=== PATIENT | female | born 1990 | race Caucasian/White ===

== ENCOUNTER 2020-10-10 18:51 | Outpatient (CLI) | payer BC | END 2020-10-10 18:52 | disposition home or self-care (01) | LOC: COV 18:51 | PROVIDERS: ATTEND Family Medicine | DX: R53.83 Other fatigue (principal); R68.83 Chills (without fever); Z20.822 Contact with and (suspected) exposure to COVID-19 ==

== ENCOUNTER 2022-02-05 08:00 | Outpatient (CLI) | payer BC | END 2022-02-06 16:27 | disposition home or self-care (01) | LOC: LAB.N 08:00 | PROVIDERS: ATTEND Family Medicine | DX: J06.9 Acute upper respiratory infection, unspecified (principal); Z20.822 Contact with and (suspected) exposure to COVID-19 ==

== ENCOUNTER 2022-07-03 07:58 | Emergency (ER) | payer BC ==
[2022-07-03] MEDS ORDERED: ONDANSETRON 4 MG/2 ML VIAL IVP STA (08:15)
--- NOTE | 2022-07-03 08:16 | ED Physician Documentation ---
PD HPI CHEST PAIN - Stated complaint Stated Complaint: CHEST PRESSURE/NAUSEA - Chief complaint Chief Complaint: Cardiac - History obtained from History obtained from: Patient - Additional information Additional information: Otherwise healthy 31-year-old woman has had ongoing left hand numbness since January. She has had a CT of her head and an MRI of her neck without pertinent positive findings. She is also had B12 testing. Is scheduled to see neurology next week. She has had on and off tingling in the right hand but today woke up with right hand tingling as well and then developed chest discomfort that is migratory. No history of heart problems. No pedal edema or calf pain. No family history of coronary disease. Review of Systems Ten Systems: 10 systems reviewed and negative Constitutional: denies: Fever, Chills Cardiac: denies: Palpitations Respiratory: denies: Dyspnea, Cough PD PAST MEDICAL HISTORY - Present Medications Home Medications: Ambulatory Orders Medication Instructions Recorded Confirmed No Known Home Medications 07/03/22 07/03/22 - Allergies Allergies/Adverse Reactions: Allergies Allergy/AdvReac Type Severity Reaction Status Date / Time No Known Drug Allergies Allergy Verified 07/03/22 08:09 PD ED PE NORMAL - Vitals Vital signs reviewed: Yes - General General: Alert and oriented X 3, No acute distress - HEENT HEENT: PERRL, EOMI - Neck Neck: Supple, no meningeal sign, No bony TTP - Cardiac Cardiac: RRR, No murmur, Other (Equal and normal radial pulses bilaterally) - Respiratory Respiratory: No respiratory distress, Clear bilaterally - Abdomen Abdomen: Non tender - Extremities Extremities: No edema, No calf tenderness / cord - Neuro Neuro: Alert and oriented X 3, Normal speech Results - Vitals Vitals: Vital Signs - 24 hr 07/03/22 07/03/22 07/03/22 08:00 08:39 09:00 Temperature 37.2 C Heart Rate 110 H 82 84 Respiratory 14 13 15 Rate Blood Pressure 127/89 H 105/77 95/67 O2 Saturation 100 100 100 Oxygen O2 Source Room air - EKG (time done) 0800 Rate: Rate (enter#) (103) Rhythm: Sinus tachycardia, LAE [place]: Normal Intervals: Normal [place] QRS: Normal Ischemia: Non specific changes. No: ST elevation c/w ischemia, ST depression - Labs Labs: Laboratory Tests 07/03/22 07/03/22 07/03/22 08:05 08:05 08:05 WBC 5.9 RBC 4.55 Hgb 13.7 Hct 39.9 MCV 87.7 MCH 30.1 MCHC 34.3 RDW 13.0 Plt Count 199 MPV 10.1 Neut # (Auto) 3.0 Lymph # (Auto) 2.3 Angelina # (Auto) 0.4 Eos # (Auto) 0.2 Baso # (Auto) 0.0 Absolute Nucleated RBC 0.00 Nucleated RBC % 0.0 D-Dimer Sodium 139 Potassium 3.3 L Chloride 103 Carbon Dioxide 26 Anion Gap 10.0 BUN 7 Creatinine 0.7 Estimated GFR (MDRD) 98 Glucose 112 H Calcium 9.4 Total Bilirubin 0.4 AST 19 ALT 13 Alkaline Phosphatase 57 Troponin I High Sens 2.3 Total Protein 7.5 Albumin 4.3 Globulin 3.2 Albumin/Globulin Ratio 1.3 Lipase 31 07/03/22 08:21 WBC RBC Hgb Hct MCV MCH MCHC RDW Plt Count MPV Neut # (Auto) Lymph # (Auto) Angelina # (Auto) Eos # (Auto) Baso # (Auto) Absolute Nucleated RBC Nucleated RBC % D-Dimer < 200.0 L Sodium Potassium Chloride Carbon Dioxide Anion Gap BUN Creatinine Estimated GFR (MDRD) Glucose Calcium Total Bilirubin AST ALT Alkaline Phosphatase Troponin I High Sens Total Protein Albumin Globulin Albumin/Globulin Ratio Lipase - Rads (name of study) Single view chest x-ray is unremarkable Radiology: EMP read contemporaneously PD MEDICAL DECISION MAKING - ED course ED course: 31-year-old woman with nonspecific chest pain that does not sound typical starting after she noted right hand numbness today. No evidence of ACS on work- up. PE is considered, but D-dimer negative. The combination of negative D- dimer, atypical symptoms, and normal chest x-ray would suggest against dissection as would equal bilateral radial pulses. Departure - Departure Disposition: 01 Home, Self Care Clinical Impression: Chest pain Qualifiers: Chest pain type: chest pain on breathing Qualified Code(s): R07.1 - Chest pain on breathing Condition: Good Record reviewed to determine appropriate education?: Yes Instructions: ED Chest Pain NonCardiac Comments: The only abnormal test today was very mildly low potassium level, that can cause tingling sensations, but doubt it would explain the tingling you have had in your hand for months. Neurology appointment next week as scheduled is appropriate. Testing for serious etiologies of chest pain including screening for blood clots and acute coronary syndrome and chest x-ray were all normal/negative. Call your doctor to arrange a follow-up appointment, make the next available appointment. In the interim, return anytime if worse or if new symptoms develop. Discharge Date/Time: 07/03/22 09:29
[2022-07-03 08:30] LABS: BASOPHILS % (AUTO) 0.3 %; EOSINOPHILS # (AUTO) 0.2 10^3/uL (0.0-0.7); EOSINOPHILS % (AUTO) 2.6 %; HCT - HEMATOCRIT 39.9 % (37.0-47.0); HGB - HEMOGLOBIN 13.7 g/dL (12.0-16.0); LYMPHOCYTES # (AUTO) 2.3 10^3/uL (1.5-3.5); LYMPHOCYTES % (AUTO) 38.9 %; MEAN CORPUSCULAR HEMOGLOBIN 30.1 pg (27.0-31.0); MEAN CORPUSCULAR HGB CONC 34.3 g/dL (32.0-36.0); MEAN CORPUSCULAR VOLUME 87.7 fL (81.0-99.0); MEAN PLATELET VOLUME 10.1 fL (7.9-10.8); MONOCYTES # (AUTO) 0.4 10^3/uL (0.0-1.0); MONOCYTES % (AUTO) 6.5 %; NEUTROPHILS % (AUTO) 51.5 %; PLT - PLATELET COUNT 199 10^3/uL (130-450); RED BLOOD COUNT 4.55 10^6/uL (4.20-5.40); WHITE BLOOD COUNT 5.9 x10^3/uL (4.8-10.8)
--- NOTE | 2022-07-03 08:32 | XRAY Report ---
PROCEDURE: Chest 1 View X-Ray INDICATIONS: Chest Pain TECHNIQUE: One view of the chest was acquired. COMPARISON: None FINDINGS: Surgical changes and devices: None. Lungs and pleura: No pleural effusions or pneumothorax. Lungs are clear. Mediastinum: Mediastinal contours appear normal. Heart size is normal. Bones and chest wall: No suspicious bony lesions. Overlying soft tissues appear unremarkable. IMPRESSION: No acute cardiopulmonary pathology. Reviewed by: Cal Rogers MD on 07/03/2022 8:31 AM PDT Approved by: Cal Rogers MD on 07/03/2022 8:31 AM PDT Station ID: [id number]
[2022-07-03 08:38] LABS: ALBUMIN 4.3 g/dL (3.2-5.5); ALBUMIN/GLOBULIN RATIO 1.3 (1.0-2.2); BILIRUBIN,TOTAL 0.4 mg/dL (0.2-1.0); CALCIUM 9.4 mg/dL (8.5-10.3); CREATININE 0.7 mg/dL (0.4-1.0); POTASSIUM 3.3 mmol/L (3.5-5.0); TOTAL PROTEIN 7.5 g/dL (6.7-8.2)
[2022-07-03] MEDS ORDERED: POTASSIUM CHLORIDE 20 MEQ TABLET PO STA (09:09)
[2022-07-03 09:23] VITALS: BP 95/67
== END 2022-07-03 09:29 | disposition home or self-care (01) ==
LOC: ED 07:58
DX: R07.1 Chest pain on breathing (principal)
CPT/HCPCS: 36415; 71045; 80053; 83690; 84484; 85025; 85379; 93005; 96374; 99284; A9270

== ENCOUNTER 2022-10-20 05:29 | Emergency (ER) | payer BC ==
[2022-10-20] MEDS ORDERED: KETOROLAC 30 MG/ML VIAL IVP STA (05:51)
[2022-10-20] MEDS ORDERED: SODIUM CHLORIDE 0.9% 1,000 ML IV STA (05:51)
[2022-10-20 05:55] LABS: BASOPHILS % (AUTO) 0.3 %; EOSINOPHILS # (AUTO) 0.1 10^3/uL (0.0-0.7); EOSINOPHILS % (AUTO) 0.9 %; HCT - HEMATOCRIT 39.6 % (37.0-47.0); HGB - HEMOGLOBIN 13.2 g/dL (12.0-16.0); LYMPHOCYTES # (AUTO) 2.6 10^3/uL (1.5-3.5); LYMPHOCYTES % (AUTO) 33.6 %; MEAN CORPUSCULAR HGB CONC 33.3 g/dL (32.0-36.0); MEAN PLATELET VOLUME 9.8 fL (7.9-10.8); MONOCYTES # (AUTO) 0.6 10^3/uL (0.0-1.0); MONOCYTES % (AUTO) 8.2 %; NEUTROPHILS # (AUTO) 4.3 10^3/uL (1.5-6.6); NEUTROPHILS % (AUTO) 56.7 %; PLT - PLATELET COUNT 198 10^3/uL (130-450); RED BLOOD COUNT 4.55 10^6/uL (4.20-5.40); RED CELL DISTRIBUTION WIDTH 12.3 % (12.0-15.0); WHITE BLOOD COUNT 7.7 x10^3/uL (4.8-10.8)
[2022-10-20 06:08] LABS: ALBUMIN 4.1 g/dL (3.2-5.5); ALBUMIN/GLOBULIN RATIO 1.3 (1.0-2.2); BILIRUBIN,TOTAL 0.7 mg/dL (0.2-1.0); CALCIUM 8.6 mg/dL (8.5-10.3); CREATININE 0.8 mg/dL (0.4-1.0); POTASSIUM 3.5 mmol/L (3.5-5.0); TOTAL PROTEIN 7.3 g/dL (6.7-8.2)
--- NOTE | 2022-10-20 06:10 | ED Physician Documentation ---
PD HPI CHEST PAIN - Stated complaint Stated Complaint: CHEST/NECK/SHOULDER PX - Chief complaint Chief Complaint: Cardiac - History obtained from History obtained from: Patient - Additional information Additional information: Patient is a 31-year-old female with no significant past medical history presenting for evaluation of left-sided chest pain that is been present since Saturday morning and woke her up from her sleep. She reports it feels sharp. It is worse with taking a deep breath and movements. Is been constant. It is not getting better which prompted her to come to the emergency department for evaluation. She did take ibuprofen without any improvement. She denies feeling short of breath. She denies leg swelling, history of PE or DVT, concerns for , recent surgery or immobilization.She denies any recent injury or trauma, recent illness. No abdominal pain, nausea or vomiting.She denies tobacco, alcohol or illicit substance use. Review of Systems Constitutional: denies: Fever Nose: denies: Congestion Cardiac: reports: Chest pain / pressure Respiratory: denies: Dyspnea GI: denies: Abdominal Pain Neurologic: denies: Headache PD PAST MEDICAL HISTORY - Past Medical History Past Medical History: Yes Cardiovascular: None Respiratory: None Neuro: Other Endocrine/Autoimmune: None GI: None LETTERER: None : None HEENT: None Psych: None Musculoskeletal: None Derm: None Other Past Medical History: L arm/hand tingling since January - Past Surgical History Past Surgical History: No - Present Medications Home Medications: Ambulatory Orders Medication Instructions Recorded Confirmed No Known Home Medications 07/03/22 10/20/22 - Allergies Allergies/Adverse Reactions: Allergies Allergy/AdvReac Type Severity Reaction Status Date / Time No Known Drug Allergies Allergy Verified 10/20/22 05:49 - Social History Does the pt smoke?: No Smoking Status: Never smoker Does the pt drink ETOH?: No Does the pt have substance abuse?: No - Immunizations Immunizations are current?: Yes - POLST Patient has POLST: No PD ED PE NORMAL - General General: Alert and oriented X 3, No acute distress, Well developed/nourished - HEENT HEENT: Atraumatic - Neck Neck: Supple, no meningeal sign - Cardiac Cardiac: RRR, Strong equal pulses, Other (No chest wall crepitus,) - Respiratory Respiratory: No respiratory distress, Clear bilaterally - Abdomen Abdomen: Soft, Non tender, Non distended - Derm Derm: Warm and dry - Extremities Extremities: No calf tenderness / cord Results - Vitals Vitals: Vital Signs - 24 hr 10/20/22 10/20/22 10/20/22 05:35 05:46 06:04 Temperature 37.5 C Heart Rate 97 106 H Respiratory 16 25 H Rate Blood Pressure 109/72 122/76 Blood Pressure 109/72 [Left] O2 Saturation 99 100 Oxygen O2 Source Room air - EKG (time done) 0544 Rate: Rate (enter#) (105) Rhythm: Sinus tachycardia Intervals: No: Prolonged QT Ischemia: No: ST elevation c/w ischemia - Labs Labs: Laboratory Tests 10/20/22 10/20/22 10/20/22 05:40 05:40 05:40 WBC 7.7 RBC 4.55 Hgb 13.2 Hct 39.6 MCV 87.0 MCH 29.0 MCHC 33.3 RDW 12.3 Plt Count 198 MPV 9.8 Neut # (Auto) 4.3 Lymph # (Auto) 2.6 Borden # (Auto) 0.6 Eos # (Auto) 0.1 Baso # (Auto) 0.0 Absolute Nucleated RBC 0.00 Nucleated RBC % 0.0 D-Dimer Sodium 135 Potassium 3.5 Chloride 101 Carbon Dioxide 25 Anion Gap 9.0 BUN 10 Creatinine 0.8 Estimated GFR (MDRD) 84 L Glucose 107 H Calcium 8.6 Total Bilirubin 0.7 AST 17 ALT 14 Alkaline Phosphatase 59 Troponin I High Sens < 2.3 L Total Protein 7.3 Albumin 4.1 Globulin 3.2 Albumin/Globulin Ratio 1.3 Lipase 31 Serum HCG, Qual 10/20/22 10/20/22 06:00 06:18 WBC RBC Hgb Hct MCV MCH MCHC RDW Plt Count MPV Neut # (Auto) Lymph # (Auto) Borden # (Auto) Eos # (Auto) Baso # (Auto) Absolute Nucleated RBC Nucleated RBC % D-Dimer 331.4 H Sodium Potassium Chloride Carbon Dioxide Anion Gap BUN Creatinine Estimated GFR (MDRD) Glucose Calcium Total Bilirubin AST ALT Alkaline Phosphatase Troponin I High Sens Total Protein Albumin Globulin Albumin/Globulin Ratio Lipase Serum HCG, Qual NEGATIVE PD Medical Decision Making - ED course Complexity details: reviewed results, re-evaluated patient, d/w patient, d/w family ED course: Patient presenting for evaluation of left-sided chest pain that appears to be pleuritic in nature. Her EKG demonstrates sinus tachycardia. She is afebrile and does not have URI symptoms.Labs were obtained which I reviewed. Her CBC and chemistries are normal. Her D-dimer is elevated. Her high-sensitivity troponin is negative and based on this as well as lack of risk factors I feel ACS is unlikely. Due to the elevated D-dimer I do feel a CT angio to evaluate for pulmonary embolism is necessary and have ordered this. I did review her chest x-ray and see no signs of pneumonia, pneumothorax or enlarged heart.Patient will be signed out to oncoming provider pending results of CT angio to evaluate for pulmonary embolism. She is receiving IV fluids and has received IV Toradol for her pain. Patient declined need for narcotic medication at this time. Departure - Departure Clinical Impression: Chest pain
[2022-10-20] MEDS ORDERED: iohexoL-300 100 ML VIAL ONE (06:37)
[2022-10-20 06:59] LABS: HCG,QUALITATIVE BLOOD NEGATIVE
[2022-10-20] MEDS ORDERED: iohexoL-300 100 ML VIAL IVP ONE (07:14)
--- NOTE | 2022-10-20 07:48 | CT Report ---
PROCEDURE: ANGIO CHEST W/WO INDICATIONS: CP/SOA/elevated ddimer CONTRAST: 100ml omni 300 TECHNIQUE: After the administration of intravenous contrast, 2 mm axial images were acquired from the pulmonary apices to the posterior costophrenic angles during the arterial phase. In addition, 1 mm lung kernel and 5 mm soft tissue kernel reconstructions were performed. 3-dimensional coronal oblique maximum int ensity projection (MIP) reformats, 8 mm axial MIP, and 5 mm coronal and sagittal MPR reformats were t hen performed through the thorax. For radiation dose reduction, the following was used: automated exp osure control, adjustment of mA and/or kV according to patient size. COMPARISON: None. FINDINGS: Image quality: Excellent. Pulmonary arteries: Pulmonary arteries are normal in size. No evidence for acute right-sided heart s train. There is acute pulmonary emboli involving several branches of the left lower lobe pulmonary ar alicia extending from the proximal segmental level distally. . Lungs and pleura: Lungs are clear. No pleural effusions or pneumothorax. Central and peripheral airways are patent. Mediastinum: Heart size is normal, without pericardial effusion. No mediastinal or hilar adenopathy. Thoracic aorta is normal in caliber and enhancement. Esophagus is normal in caliber. No hiatal hernia. Bones and chest wall: No suspicious bony lesions. Ribs and thoracic spine appear intact throughout. Thyroid gland appears unremarkable. No axillary or supraclavicular adenopathy. Abdomen: Visualized upper abdominal solid organs appear normal in the early arterial phase of enhanc ement. IMPRESSION: Acute pulmonary emboli involving the left lower lobe pulmonary arteries extending from the level of t he proximal segmental pulmonary artery distally. No evidence for pulmonary infarction. No acute airsp shadia disease identified. No evidence for acute right-sided heart strain. Findings discussed with Dr. Mojica at 0746hrs. Reviewed by: Derek Fagan MD on 10/20/2022 7:47 AM [facility] Approved by: Derek Fagan MD on 10/20/2022 7:47 AM PST Station ID: [id number]
--- NOTE | 2022-10-20 07:49 | XRAY Report ---
PROCEDURE: Chest 1 View X-Ray INDICATIONS: CP TECHNIQUE: One view of the chest was acquired. COMPARISON: None. FINDINGS: Surgical changes and devices: None. Lungs and pleura: No pleural effusions or pneumothorax. Lungs are clear. Mediastinum: Mediastinal contours appear normal. Heart size is normal. Bones and chest wall: No suspicious bony lesions. Overlying soft tissues appear unremarkable. IMPRESSION: Low lung volumes. No acute cardiopulmonary modalities. No focal consolidation. No significant discrepancy with initial interpretation by overnight radiologist. Reviewed by: Derek Fagan MD on 10/20/2022 7:47 AM [facility] Approved by: Derek Fagan MD on 10/20/2022 7:47 AM [facility] Station ID: [id number]
[2022-10-20] MEDS ORDERED: APIXABAN 5 MG TABLET PO STA (08:28)
[2022-10-20] MEDS ORDERED: ACETAMINOPHEN 325 MG TABLET PO STA (08:31)
--- NOTE | 2022-10-20 08:49 | ED Physician Documentation ---
ED Addendum - Addendum Addendum: 10/20/22 08:44 Received care of the patient with verbal handoff at change of shift. The patient was pending the results of the CT scan. The CT scan report did come back and the radiologist called as well to inform of a segmental embolus in the left interlobar vessel extending down to the lower lobe segment. No other acute findings. I talked with the patient and her significant other in the room. We discussed the results and the implications being the need for blood thinner medication (anticoagulant) and the alternative choices of Coumadin versus DOAC's. The patient does not have any history of blood clots nor any known family history of early blood clots. She does not have any ulcers. No history of recent surgery or tumors. She is a non-smoker. She had been on oral and contraceptives in the past but not currently. She and her significant other had COVID in April and then received a booster vaccine approximately 2 months later so likely June. She had not had any recent illness. No recent travel or injuries. No obvious cause for the PE. We can add on the common thrombophilia type blood tests since there is not an obvious precipitant. These may help guide subsequent treatment. We did discuss use of the anticoagulants and things to watch out for and be careful of. She can use Tylenol for pain and add oxycodone if needed. They asked about NSAIDs and I said an occasional dose could be considered usually okay but not to use any regularly. [facility] [place] at their direction. Disposition: The patient discharged home in stable condition. Her heart rate is mildly tachycardic but otherwise good vitals. Diagnoses: 1. Pleuritic left-sided chest pain 2. Acute pulmonary embolus
[2022-10-20 08:50] VITALS: BP 103/72
== END 2022-10-20 09:19 | disposition home or self-care (01) ==
LOC: ED 05:29
DX: R07.89 Other chest pain (principal); I26.99 Other pulmonary embolism without acute cor pulmonale
CPT/HCPCS: 36415; 71045; 71275; 80053; 81241; 83690; 84484; 84703; 85025; 85300; 85303; 85306; 85379; 85598; 85613; 85651; 85732; 86147; 93005; 96374; 99283; 99284; A9270; Q9967

== ENCOUNTER 2022-10-21 10:57 | Emergency (ER) | payer BC ==
[2022-10-21] MEDS ORDERED: clonazePAM 0.5 MG TABLET PO STA (11:25)
[2022-10-21] MEDS ORDERED: ONDANSETRON ODT 4 MG TABLET TL STA (11:25)
--- NOTE | 2022-10-21 11:29 | ED Physician Documentation ---
History of Present Illness - Stated complaint Stated Complaint: NAUSEOUS - Chief complaint Chief Complaint: General - History obtained from History obtained from: Patient - Additonal information Additional information: This is a very nice 31-year-old female who presents with nausea as well as difficulty sleeping. She was diagnosed with a pulmonary embolus yesterday morning, and was started on Eliquis which she has been taking. She states that she has had ongoing left sided chest pain that is unchanged from prior, Nonexertional, nonradiatingand woke up this morning feeling nauseous but no vomiting. She denies any abdominal pain, no diarrhea or constipation, no urinary symptoms. She has no shortness of breath but continues to have a constant left-sided chest pain that she was seen for yesterday morning. She has not been able to sleep due to the discomfort and also some degree of anxiety. She is taking Tylenol primarily for pain though took a half of an oxycodone on 2 occasions that did help her sleep but then she would wake up still feeling uncomfortable. No history of pulmonary embolus or DVT, no risk factors for such, patient is undergoing hypercoagulable work-up. Review of Systems Constitutional: reports: Reviewed and negative, Other (All other symptoms reviewed and are negative except as noted per HPI) PD PAST MEDICAL HISTORY - Past Medical History Past Medical History: Yes Cardiovascular: Pulmonary embolism Respiratory: None Neuro: Other Endocrine/Autoimmune: None GI: None MANAGER NEW PRODUCT: None : None HEENT: None Psych: None Musculoskeletal: None Derm: None - Past Surgical History Past Surgical History: No - Present Medications Home Medications: Ambulatory Orders Medication Instructions Recorded Confirmed Apixaban [Eliquis] 5 mg PO BID 30 Days #60 tablet 10/20/22 10/21/22 oxyCODONE [Roxicodone] 5 mg PO Q6H PRN #20 tablet 10/20/22 10/21/22 Ondansetron Odt [Zofran] 4 mg TL Q6H PRN #20 tablet 10/21/22 clonazePAM [Clonazepam] 0.5 mg PO Q8HR PRN #6 tab 10/21/22 - Allergies Allergies/Adverse Reactions: Allergies Allergy/AdvReac Type Severity Reaction Status Date / Time No Known Drug Allergies Allergy Verified 10/21/22 11:12 - Social History Does the pt smoke?: No Smoking Status: Never smoker Does the pt drink ETOH?: No Does the pt have substance abuse?: No - Immunizations Immunizations are current?: Yes - POLST Patient has POLST: No PD ED PE NORMAL - Vitals Vital signs reviewed: Yes - General General: Alert and oriented X 3, No acute distress, Well developed/nourished, Other (Tearful at time) - HEENT HEENT: Atraumatic, Moist mucous membranes - Cardiac Cardiac: No murmur, No gallop, Strong equal pulses, Other (Tachycardic) - Respiratory Respiratory: No respiratory distress, Clear bilaterally - Abdomen Abdomen: Normal bowel sounds, Soft, Non tender, Non distended - Derm Derm: Normal color, Warm and dry, No rash - Neuro Neuro: Alert and oriented X 3 Eye Opening: Spontaneous Motor: Obeys Commands Verbal: Oriented GCS Score: 15 - Psych Psych: Normal mood, Normal affect Results - Vitals Vitals: Vital Signs - 24 hr 10/21/22 10/21/22 10/21/22 11:09 11:15 12:43 Temperature 37.3 C 37.0 C Heart Rate 114 H 108 H 88 Respiratory 20 20 16 Rate Blood Pressure 127/78 127/78 126/78 O2 Saturation 100 100 100 Oxygen O2 Source Room air - Labs Labs: Laboratory Tests 10/21/22 11:45 Urine Color YELLOW Urine Clarity HAZY Urine pH 6.0 Ur Specific Marty 1.015 Urine Protein NEGATIVE Urine Glucose (UA) NEGATIVE Urine Ketones NEGATIVE Urine Occult Blood SMALL H Urine Nitrite NEGATIVE Urine Bilirubin NEGATIVE Urine Urobilinogen 0.2 (NORMAL) Ur Leukocyte Esterase SMALL H Urine RBC 0-5 Urine WBC 0-3 Ur Squamous Epith Cells FEW Squamous Urine Bacteria Moderate H Ur Microscopic Review INDICATED Urine Culture Comments INDICATED Urine HCG, Qual NEGATIVE PD Medical Decision Making - ED course Complexity details: reviewed old records, reviewed results, re-evaluated patient, considered differential, d/w patient ED course: 31-year-old female recently diagnosed with pulmonary embolus presents with difficulty sleeping, ongoing left chest pain Similar to prior, nonradiating and nonexertional, and nausea. She is stable appearing on physical exam though mildly tachycardic. She is tearful and concerned about her diagnosis Of pulmonary embolus. Given she had an otherwise reassuring work-up yesterday morning, I do not think any additional Labwork-up is indicated at this time but we will treat her nausea as well as her difficulty sleeping. Her labs, CT scan and notes from yesterday's visit were reviewed. Patient was given sublingual Zofran and we can discharge her home with sublingual and Zofran as well as short-term Clonazepam to use as needed for anxiety and sleeplessness. We did obtain a urinalysis given patient's nausea and this was negative for does have some bacteria and was sent for culture. The patient has no dysuria urgency or frequency or flank pain, will hold off on any treatment at this time pending culture results and I discussed this with patient. I provided reassurance to the patient and discussed her pulmonary embolus and Expected course of treatment. Departure - Departure Disposition: Home, Self Care Clinical Impression: Nausea & vomiting Qualifiers: Vomiting type: unspecified Qualified Code(s): R11.2 - Nausea with vomiting, unspecified Condition: Good Instructions: ED Nausea Vomiting Prescriptions: clonazePAM [Clonazepam] 0.5 mg PO Q8HR PRN #6 tab PRN Reason: Anxiety Ondansetron Odt [Zofran] 4 mg TL Q6H PRN #20 tablet PRN Reason: Nausea / Vomiting Comments: Please continue the medications you were prescribed for the pulmonary embolus. I have also given you nausea tablets and anxiety medication to help with sleep. I do not recommend you take the anxiety medication at the same time as the oxycodone due to risk for oversedation. Use anxiety medication only as needed. You may consider trying benadryl or melatonin, both available over the counter, to assist with sleep instead. Your urine test today does show some bacteria. We have sent it for culture. I would not recommend treatment today because you do not have urinary pain or other urinary symptoms, but we will notify you if the culture returns positive tomorrow if antibiotics are indicated. Discharge Date/Time: 10/21/22 12:43
[2022-10-21 12:05] LABS: BILIRUBIN,URINE NEGATIVE (NEGATIVE); GLUCOSE, URINE (UA) NEGATIVE (NEGATIVE); KETONES,URINE (UA) NEGATIVE (NEGATIVE); LEUKOCYTE ESTERASE, URINE SMALL (NEGATIVE); NITRITE,URINE NEGATIVE (NEGATIVE); OCCULT BLOOD,URINE SMALL (NEGATIVE); PROTEIN,URINE NEGATIVE (NEGATIVE); UROBILINOGEN,URINE 0.2 (NORMAL) E.U./dL (NORMAL)
[2022-10-21 12:07] LABS: CLARITY,URINE HAZY (CLEAR); HCG UR QUAL NEGATIVE
[2022-10-21 12:17] LABS: BACTERIA,URINE Moderate /HPF (None Seen); RBC,URINE 0-5 /HPF (0-5); SQUAMOUS EPITHELIAL CELL,UR FEW Squamous (<= Few); WBC,URINE 0-3 /HPF (0-5)
[2022-10-21 12:45] VITALS: BP 126/78
== END 2022-10-21 12:43 | disposition home or self-care (01) ==
LOC: ED 10:57
DX: R11.2 Nausea with vomiting, unspecified (principal); I26.99 Other pulmonary embolism without acute cor pulmonale
CPT/HCPCS: 81001; 81025; 87086; 99283; A9270; Q0162; 81003

== ENCOUNTER 2024-03-24 18:22 | Outpatient (CLI) | payer BC | END 2024-03-24 18:23 | disposition home or self-care (01) | LOC: LAB 18:22 | PROVIDERS: ATTEND Family Medicine | DX: D68.59 Other primary thrombophilia (principal) | CPT/HCPCS: 36415; 85379 ==